=== PATIENT | male | born 1985 | race Caucasian/White ===

== ENCOUNTER 2017-06-07 13:31 | Emergency (ER) | payer BC, MEDICAID ==
--- NOTE | ~2017-06-07 | CT2 ---
[facility] A Service of [facility] RADIOLOGY TEXT RESULTS PATIENT: LEVI FLEMING III LOCATION: SED : 83 UNIT #: [id number] AGE: [address]: Dominik Shultz MD SEX: M ORDER DR: [id number] [place] [id number] E MR#: [id number] Acc #: [id number] NAME: LEVI FLEMING III : 1985 SEX: M STUDY DATE/TIME: 06/07/2017 15:02 UNIT: SED ROOM: STUDY DESCRIPTION: CT Abd and Pelv W Cont Attending Physician: Dominik Shultz M.D. Ordering Physician: Dominik Shultz M.D. Primary Care Physician: Primary Care Physician No MEDICAL IMAGING REPORT This report is preliminary unless electronic signature is present. EXAM CT abdomen and pelvis with contrast DATE 06/07/2017 HISTORY 31-year-old male with abdominal pain for 2 years. Pain across the mid abdomen. Four knots across the midline of the abdomen. COMPARISON None PROCEDURE 5 mm axial images from the lung bases through the lesser trochanters after intravenous contrast administration. Enteric contrast was not administered. Sagittal and coronal reformatted images were obtained. This CT exam was performed with one or more of the following radiation dose reduction techniques: automatic exposure control, adjustment of mA and/or kV according to patient size, and iterative reconstruction. FINDINGS Abdomen findings: No abdominal wall soft tissue nodule or inflammatory change or fluid collection is identified. No ventral abdominal hernia is identified. Lung bases are clear. Heart size is normal. Liver, gallbladder, spleen, pancreas, adrenals and kidneys are within normal limits. No abdominal adenopathy or free fluid. Appendix is normal. Pelvis findings: Urinary bladder, prostate and rectum are normal. No pelvic adenopathy or free fluid. [facility] A Service [facility] RADIOLOGY TEXT RESULTS PATIENT: LEVI FLEMING III LOCATION: SED : 83 UNIT #: [id number] AGE: [address]: Dominik Shultz MD SEX: M ORDER DR: [id number] limbus vertebrae. No acute or suspicious osseous abnormalities. IMPRESSION Normal CT abdomen and pelvis contrast. No CT explanation for the patient's palpable abdominal abnormality or abdominal pain. Dictated by... Dulce Manley M.D. THIS IS AN ELECTRONICALLY VERIFIED REPORT Dulce Manley M.D. at 06/09/2017 9:[address] [facility]/ramiro TD: 06/07/2017 17:21 JOB #: [id number] MEDICAL IMAGING REPORT Page 1 of 1
[~2017-06-07 13:31] MED LIST: BACTRIM DS TABL1 TAB PO; KEFLEX PO; LORTAB 10-5001 EACH PO; PENICILLIN V P500 MG PO; TRAMADOL HCL50 M1 PO
[2017-06-07] MEDS ORDERED: NO MEDICATIONS (13:36)
[2017-06-07 14:56] LABS: BASOPHIL% 0.5 % (0-2.5); EOSINOPHIL# 0.1 X10e3 (0-0.7); EOSINOPHIL% 1.8 % (0.0-7.0); HEMATOCRIT 42.6 % (38.0-50.0); HEMOGLOBIN 15.2 gm/dL (13.0-16.0); LYMPHOCYTE% 17.1 % (17.0-45.0); MEAN CELL VOLUME 94.1 FL (83-96); MEAN CORPUSCULAR HEMOGLOBIN 33.7 PG (28-34); MEAN CORPUSCULAR HGB CONC 35.8 g/dL (30-36); MEAN PLATELET VOLUME 8.1 FL (6.5-11.5); MONOCYTE# 0.4 X10e3 (0-1.0); MONOCYTE% 6.5 % (3.0-12.0); NEUTROPHIL# 4.3 X10e3 (1.5-7.1); NEUTROPHIL% 74.1 % (40-75); PLATELET COUNT 165 X10e3 (140-420); RED BLOOD COUNT 4.52 X10e (3.90-5.60); RED CELL DISTRIBUTION WIDTH 13.1 % (11.0-15.5); WHITE BLOOD COUNT 5.9 X10e3 (4.0-10.5)
[2017-06-07 14:57] LABS: DIFF IND NO
[2017-06-07 14:58] LABS: URINE SOURCE CLEAN CATCH
[2017-06-07 15:00] LABS: URINE APPEARANCE SL CLOUDY; URINE BILIRUBIN NEG (NEG); URINE BLOOD NEG (NEG); URINE COLOR YELLOW; URINE GLUCOSE NEG (NORM); URINE KETONE NEG (NEG); URINE LEUKOCYTE ESTERASE NEG (NEG); URINE NITRATE NEG (NEG); URINE PH 6.5 (5-8); URINE PROTEIN NEG (NEG); URINE SPECIFIC GRAVITY 1.015 (1.003-1.035)
[2017-06-07 15:03] LABS: MICRO INDICATED? NO
[2017-06-07 15:16] LABS: ALBUMIN SERUM 4.7 g/dL (3.5-5.0); BILIRUBIN,TOTAL 1.1 mg/dL (0.2-2.0); BUN/CREATININE RATIO 14.44; CALCIUM SERUM 9.5 mg/dL (8.4-10.2); CREATININE SERUM 0.9 mg/dL (0.6-1.4); GLOM FILT RATE Estimated 111.8 mL/min (>60); POTASSIUM 3.6 mmol/L (3.5-5.1); PROTEIN TOTAL SERUM 7.4 g/dL (6.0-8.3)
[2017-06-07 16:21] LABS: AMPHETAMINE NEG (NEG); BARBITURATES NEG (NEG); BENZODIAZEPINES NEG (NEG); COCAINE NEG (NEG); MARIJUANA NEG (NEG); OPIATES NEG (NEG); TRICYCLIC ANTIDEPRESSANTS NEG (NEG); U METHADONE NEG (NEG)
== END 2017-06-07 16:51 | disposition home or self-care (01) ==
LOC: SED 13:31
PROVIDERS: Emergency Medicine
DX: S39.011A Strain of muscle, fascia and tendon of abdomen, initial encounter (principal); Z87.891 Personal history of nicotine dependence; D17.9 Benign lipomatous neoplasm, unspecified
CPT/HCPCS: 36415; 74177; 80053; 80307; 81003; 82150; 83690; 85025; 96361; 96374; 96375; 99284; C9113; J1885; J2405; Q9967